=== PATIENT | male | born 1960 | race Caucasian/White ===

== ENCOUNTER 2019-05-06 17:55 | Emergency (ER) | payer OTHER | END 2019-05-06 20:25 | disposition home or self-care (01) | LOC: FER 17:55 ==

== ENCOUNTER 2020-05-30 12:13 | Emergency (ER) | payer OTHER ==
[2020-05-30] MEDS ORDERED: morphine CARPU-JECT 4 MG/1 ML DISP.SYRIN IVPUSH ONE ×2 (12:17→15:51)
[2020-05-30] MEDS ORDERED: SODIUM CHLORIDE 0.9% 1000 ML INFUS.BAG IV ONE ×2 (12:17→15:27)
[2020-05-30] MEDS ORDERED: ACETAMINOPHEN 1000 MG/100 ML VIAL (NON FORMULARY) IVPB ONE (12:17)
[2020-05-30] MEDS ORDERED: morphine SULFATE 4 MG/ML VIAL ONE ×2 (12:22→15:52)
[2020-05-30 12:25] VITALS: TEMP 97.6; BMI 26.6
[2020-05-30 12:51] LABS: BASO % 4.5 % (0-2.0); HEMATOCRIT 42.8 % (35.4-49); HEMOGLOBIN 14.8 GM/dl (11.7-16.9); MCH 27.5 pg (25.7-33.7); MCHC 34.7 g/dl (32.0-35.9); MEAN CELL VOLUME 79.1 fl (80-96); MEAN PLT VOLUME 7.7 fl (7.5-11.1); MONO % 4.9 % (3.8-10.2); NEUT % 79.6 % (42.8-82.8); PLATELET COUNT 226 K/MM3 (134-434); RBC 5.41 M/mm3 (4.00-5.60); RDW 12.2 % (11.9-15.9); WHITE BLOOD COUNT 12.2 K/mm3 (4.0-10.8)
[2020-05-30 13:00] LABS: ALBUMIN 4.5 g/dl (3.4-5.0); BILIRUBIN,TOTAL 0.7 mg/dl (0.2-1); CALCIUM 9.4 mg/dl (8.5-10); CREATININE 1.3 mg/dl (0.55-1.3); POTASSIUM 4.4 mmol/L (3.5-5.1)
[2020-05-30 13:05] VITALS: BP 166/98; PULSE 65
[2020-05-30 13:08] LABS: EPITHELIAL CELLS RARE /hpf
--- NOTE | 2020-05-30 13:31 | PDOC ---
History of Present Illness - General Chief Complaint: Pain Stated Complaint: FLANK PAIN Time Seen by Provider: 05/30/20 12:16 - History of Present Illness Initial Comments: 05/30/20 16:08 59 years old [id number] diabetes history kidney stones presenting 1 day history of sudden onset right-sided abdominal discomfort colicky in nature comes and goes cannot get comfortable 9 out of 10 no alleviating factors. No fever chills chest pain shortness of breath nausea vomiting diarrhea Past History - Medical History Allergies/Adverse Reactions: Allergies Allergy/AdvReac Type Severity Reaction Status Date / Time Penicillins Allergy Verified 05/30/20 12:14 Home Medications: Ambulatory Orders Metformin HCl [Glucophage] 500 mg PO BID 05/06/19 Glipizide mg PO DAILY 05/30/20 COPD: No Diabetes: Yes Hypercholesterolemia: Yes Kidney Stones: Yes - Psycho-Social/Smoking History Smoking History: Never smoked Have you smoked in the past 12 months: No Information on smoking cessation initiated: No - Substance Abuse Hx (Audit-C & DAST Scrn) How often the patient has a drink containing alcohol: Never Score: In Men: 4 or > Positive; In Women: 3 or > Positive: 0 Screen Result (Pos requires Nsg. Audit-10AR): Negative In the last yr the pt used illegal drug/Rx for NonMed reason: No Score: Yes response is considered Positive: 0 Screen Result (Positive result requires Nsg. DAST-10): Negative Review of Systems - Review of Systems Comments:: 05/30/20 16:08 ROS: A complete review of 10 out of 10 review of systems is taken and is negative apart from what is previously mentioned below and in the HPI. *Physical Exam - Vital Signs Last Vital Signs Temp Pulse Resp BP Pulse Ox 97.6 F 65 16 166/98 99 05/30/20 12:13 05/30/20 13:04 05/30/20 13:04 05/30/20 13:04 05/30/20 13:04 - Physical Exam 05/30/20 16:09 Vitals: Triage Vital signs reviewed General Appearance: No acute distress, well nourished well developed, Head: Atraumatic, Cardiac: Regular rate and rhythym, no murmurs, no rubs, no gallops, Lungs: Clear to auscultation bilateral, good air movement bilaterally, Abdomen: Soft, non distended, normal bowel sounds, mild right lower quadrant tenderness to palpation. No rebound no guarding. Genitourinary: No testicular pain positive cremasteric reflex Extremities: Full range of motion to all extremities, no cyanosis, clubbing, or edema Skin: Warm and dry, no rashes or lesions, no rash, no petechiae Psych: Normal mood, normal affect ED Treatment Course - LABORATORY CBC & Chemistry Diagram: 05/30/20 12:35 05/30/20 12:21 - ADDITIONAL ORDERS Additional order review: Laboratory Results 05/30/20 05/30/20 12:35 12:21 Sodium 136 Potassium 4.4 Chloride 100 Carbon Dioxide 25 Anion Gap 11 BUN 22.0 H Creatinine 1.3 Est GFR (CKD-EPI)AfAm 68.74 Est GFR (CKD-EPI)NonAf 59.31 Random Glucose 324 H Calcium 9.4 Total Bilirubin 0.7 AST 19 ALT 20 Alkaline Phosphatase 70 Total Protein 7.0 Albumin 4.5 Urine Color Yellow Urine Appearance Clear Urine pH 5.0 Urine Protein Negative Urine Glucose (UA) Negative Urine Ketones Trace Urine Blood Trace-lysed Urine Nitrite Negative Urine Bilirubin Negative Urine Urobilinogen 0.2 Ur Leukocyte Esterase Negative Urine RBC 2-5 Urine WBC 0-2 Ur Transition Epith Cell Rare 05/30/20 12:35 RBC 5.41 MCV 79.1 L MCHC 34.7 RDW 12.2 MPV 7.7 Neutrophils % 79.6 Lymphocytes % 10.0 Monocytes % 4.9 Eosinophils % 1.0 Basophils % 4.5 H - RADIOLOGY Radiology Studies Ordered: Category Date Time Status ABDOMEN & PELVIS CT W/O CONTR [CT] Stat CT Scan 05/30/20 12:45 Ordered - Medications Given in the ED: ED Medications Discontinued Medications Generic Name Dose Route Start Last Admin Trade Name Freq PRN Reason Stop Dose Admin Acetaminophen 1,000 mg 05/30/20 12:17 05/30/20 12:45 Ofirmev Injection - IVPB 05/30/20 12:18 1,000 mg ONCE ONE Administration Morphine Sulfate 4 mg 05/30/20 12:17 05/30/20 12:33 Morphine Injection - IVPUSH 05/30/20 12:18 4 mg ONCE ONE Administration Sodium Chloride 1,000 ml 05/30/20 12:17 05/30/20 12:30 Normal Saline - IV 05/30/20 12:18 1,000 ml ONCE ONE Administration Medical Decision Making - Medical Decision Making 05/30/20 16History examination consistent with renal colic We will check labs urine observe and reassess no significant blood in urine We will obtain CT with and without IV contrast CAT scan demonstrates small stone at UVJ Patient feels better after pain medication has a urologist will follow-up this week will discharge home on floor max and meds for pain Findings, need for follow-up and strict return instructions discussed with patient. Discharge - Discharge Information Problems reviewed: Yes Clinical Impression/Diagnosis: Renal colic on right side Condition: Stable Disposition: HOME - Admission No - Follow up/Referral - Patient Discharge Instructions Patient Printed Discharge Instructions: Kidney Stones -- Adult Additional Instructions: Drink plenty fluids. Alternate Tylenol Motrin as directed on package as needed for pain. When urinating urinate through a urine strainer. Take Flomax as prescribed at night. Follow-up with your urologist Dr. Hensley in 1 to 2 days. Return to ED for any fever vomiting uncontrollable pain or for any concerns. - Post Discharge Activity
[2020-05-30] MEDS ORDERED: KETOROLAC TROMETHAMINE 30 MG/1 ML VIAL IVPUSH ONE (16:08)
[2020-05-30] MEDS ORDERED: KETOROLAC TROMETHAMINE 30 MG/1 ML VIAL ONE (16:09)
[2020-05-30] MEDS ORDERED: TAMSULOSIN HCL 0.4 MG CAP PO ONE (16:21)
[2020-05-30] MEDS ORDERED: TAMSULOSIN HCL 0.4 MG CAP ONE (16:22)
== END 2020-05-30 16:25 | disposition home or self-care (01) ==
LOC: FER 12:13
PROC: 3E033GC Introduction of Other Therapeutic Substance into Peripheral Vein, Percutaneous Approach (ICD-10-PCS; principal; 2020-05-30)
DX: N23 Unspecified renal colic (principal)
CPT/HCPCS: 36415; 74178-TC; 80053; 81003; 81015; 85025; 87086; 99285-25; J0131; Q9967

== ENCOUNTER 2022-06-30 20:36 | Emergency (ER) | payer OTHER ==
[2022-06-30 20:49] VITALS: BP 183/96; PULSE 68; RESP 18; TEMP 98.8; BMI 26.6
[2022-06-30] MEDS ORDERED: ONDANSETRON 4 MG/2 ML VIAL IVPB ONE (20:56)
[2022-06-30] MEDS ORDERED: KETOROLAC TROMETHAMINE 30 MG/1 ML VIAL IVPUSH STA (20:56)
[2022-06-30] MEDS ORDERED: SODIUM CHLORIDE 1,000 ML ONE (20:56)
[2022-06-30] MEDS ORDERED: KETOROLAC TROMETHAMINE 30 MG/1 ML VIAL ONE (21:01)
[2022-06-30] MEDS ORDERED: ONDANSETRON 4 MG/2 ML VIAL ONE (21:01)
[2022-06-30 21:37] LABS: HEMATOCRIT 42.4 % (35.4-49); HEMOGLOBIN 15.3 G/dL (11.7-16.9); MCH 28.7 pg (25.7-33.7); MCHC 36.1 g/dl (32.0-35.9); MEAN CELL VOLUME 79.7 fl (80-96); MEAN PLT VOLUME 8.2 fl (7.5-11.1); PLATELET COUNT 188.4 10^3/uL (134-434); RBC 5.32 10^6/uL (4.00-5.60); WHITE BLOOD COUNT 14.4 10^3/uL (4.0-10.8)
[2022-06-30 21:47] LABS: ALBUMIN 4.7 g/dl (3.4-5.0); BILIRUBIN,TOTAL 1.4 mg/dl (0.2-1); CALCIUM 9.2 mg/dl (8.5-10); CREATININE 1.5 mg/dl (0.55-1.3); TOT PROT 7.5 g/dl (6.4-8.2)
[2022-06-30 22:06] LABS: PLATELET ESTIMATE ADEQUATE
[2022-06-30] MEDS ORDERED: CIPROFLOXACIN 500 MG TABLET (RESTRICTED TO ID) PO ONE (22:08)
[2022-06-30] MEDS ORDERED: CIPROFLOXACIN 250 MG TABLET (RESTRICTED TO ID) PO ONE (22:11)
== END 2022-06-30 22:16 | disposition home or self-care (01) ==
LOC: FER 20:36
PROC: 3E0333Z Introduction of Anti-inflammatory into Peripheral Vein, Percutaneous Approach (ICD-10-PCS; principal; 2022-06-30)
PROC: 3E033GC Introduction of Other Therapeutic Substance into Peripheral Vein, Percutaneous Approach (ICD-10-PCS; 2022-06-30)
PROC: 3E0337Z Introduction of Electrolytic and Water Balance Substance into Peripheral Vein, Percutaneous Approach (ICD-10-PCS; 2022-06-30)
DX: N23 Unspecified renal colic (principal)
CPT/HCPCS: 36415; 74176-TC; 80053; 81003; 81015; 85025; 99284-25

== ENCOUNTER 2023-07-21 01:05 | Emergency (ER) | payer OTHER ==
[2023-07-21] MEDS ORDERED: KETOROLAC TROMETHAMINE 30 MG/1 ML VIAL IVPUSH ONE (01:18)
[2023-07-21] MEDS ORDERED: SODIUM CHLORIDE 0.9% 500 ML INFUS.BAG IV ONE (01:18)
[2023-07-21] MEDS ORDERED: TAMSULOSIN HCL 0.4 MG CAP PO ONE (01:18)
[2023-07-21] MEDS ORDERED: KETOROLAC TROMETHAMINE 30 MG/1 ML VIAL ONE (01:20)
[2023-07-21] MEDS ORDERED: TAMSULOSIN HCL 0.4 MG CAP ONE (01:21)
[2023-07-21 01:25] VITALS: PULSE 73; RESP 18; TEMP 99; BMI 26.7
[2023-07-21 02:30] LABS: BASO % 0.2 % (0-2.0); EOS % 0.5 % (0-4.5); HEMATOCRIT 42.2 % (35.4-49); HEMOGLOBIN 14.5 GM/dL (11.7-16.9); LYMPH % 8.3 % (8-40); MCH 26.8 pg (25.7-33.7); MCHC 34.4 g/dl (32.0-35.9); MEAN PLT VOLUME 7.8 fl (7.5-11.1); MONO % 4.8 % (3.8-10.2); NEUT % 86.2 % (42.8-82.8); PLATELET COUNT 177 10^3/uL (134-434); RBC 5.42 M/mm3 (4.00-5.60); WHITE BLOOD COUNT 13.5 K/mm3 (4.0-10.0)
[2023-07-21 02:33] LABS: EPI CELLS 2 /uL (0-25.1); HYALINE CASTS 0 /uL (0-3.1); URINE APPEARANCE CLEAR; URINE BACTERIA 3 /uL (0-1359); URINE BILIRUBIN NEGATIVE (NEGATIVE); URINE COLOR YELLOW; URINE GLUCOSE (UA) 3+ (NEGATIVE); URINE KETONE TRACE (NEGATIVE); URINE LEUK ESTERASE NEGATIVE (NEGATIVE); URINE NITRITE NEGATIVE (NEGATIVE); URINE PROTEIN 2+ (NEGATIVE); URINE RBC 30 /uL (0-23.9); URINE UROBILINOGEN 0.2 mg/dL (0.2-1.0); URINE WBC 6 /uL (0-25.8)
[2023-07-21 03:04] LABS: POTASSIUM 4.1 mmol/L (3.5-5.1)
[2023-07-21 03:05] LABS: CALCIUM 8.9 mg/dL (8.5-10.1)
[2023-07-21 03:06] LABS: ALBUMIN 4.3 g/dl (3.4-5.0); BLOOD UREA NITROGEN 22.8 mg/dL (7-18)
[2023-07-21 03:09] LABS: CREATININE 1.5 mg/dL (0.55-1.3)
[2023-07-21 03:11] LABS: BILIRUBIN,TOTAL 0.5 mg/dL (0.2-1); TOT PROT 7.2 g/dl (6.4-8.2)
[2023-07-21 03:25] VITALS: BP 136/89
[2023-07-21 08:09] LABS: YEAST FEW (NEGATIVE)
== END 2023-07-21 03:25 | disposition home or self-care (01) ==
LOC: FER 01:05
PROC: 3E033NZ Introduction of Analgesics, Hypnotics, Sedatives into Peripheral Vein, Percutaneous Approach (ICD-10-PCS; principal; 2023-07-21)
DX: N23 Unspecified renal colic (principal)
CPT/HCPCS: 36415; 80053; 81003; 85025; 87086; 99284-25